=== PATIENT | male | born 1985 | race Two or more races ===

== ENCOUNTER 2025-01-05 09:05 | Emergency (ER) | payer SELFPAY ==
[~2025-01-05] VITALS: Ht 160 cm; Wt 74.4 kg
[2025-01-05] MEDS ORDERED: LIDO30AD10 TP (09:34)
[2025-01-05] MEDS ORDERED: CYCL5TAB PO (09:34)
[2025-01-05] MEDS ORDERED: IBUP-1955 PO (09:34)
[2025-01-05] MEDS ORDERED: ACETAMINOPHEN ES 500 MG TABLET ONE (09:57)
[2025-01-05] MEDS ORDERED: LIDOCAINE 5% (PATCH) 1 EA PATCH TP ONE (09:57)
[2025-01-05] MEDS: LIDOCAINE 5% (PATCH) 1 EA PATCH TP STA (10:15)
[2025-01-05] MEDS: ACETAMINOPHEN 325 MG TABLET PO ONE (10:25)
[2025-01-05 12:31] VITALS: BP 121/91; TEMP 98.3; O2SAT 99
== END 2025-01-05 12:31 | disposition home or self-care (01) ==
LOC: ER 09:11
DX: S16.1XXA Strain of muscle, fascia and tendon at neck level, initial encounter (principal); R07.89 Other chest pain; Z60.2 Problems related to living alone; V43.52XA Car driver injured in collision with other type car in traffic accident, initial encounter; Y93.89 Activity, other specified; Y92.488 Other paved roadways as the place of occurrence of the external cause; Y99.8 Other external cause status
CPT/HCPCS: 71100-TC; 71120-TC